=== PATIENT | male | born 1985 | race Caucasian/White ===

== ENCOUNTER 2017-09-20 21:09 | Emergency (ER) | payer SELFPAY ==
[~2017-09-20] VITALS: Ht 160 cm; Wt 68.0 kg
[~2017-09-20 21:09] MED LIST: CIPRO500 MG PO; DOXYCYCLINE MO100 MG PO; LEVAQUIN750 M1 PO; MOTRIN800 MG PO; SEPTRA DS 800 M1 TAB PO
[2017-09-20] MEDS ORDERED: CEPHALEXIN500 M1 PO (22:51)
== END 2017-09-20 23:08 | disposition home or self-care (01) ==
LOC: ED 21:09
DX: S91.011A Laceration without foreign body, right ankle, initial encounter (principal); W22.8XXA Striking against or struck by other objects, initial encounter; Y93.89 Activity, other specified; Y92.89 Other specified places as the place of occurrence of the external cause; Y99.8 Other external cause status